=== PATIENT | male | born 1935 | race Caucasian/White ===

== ENCOUNTER 2016-07-21 07:42 | Outpatient (CLI) | payer OTHER ==
--- NOTE | 2016-07-21 10:18 | DIAGNOSTIC IMAGING REPORT ---
PROCEDURE: CT IVP CLINICAL INDICATION: Painless microscopic hematuria. Initial encounter. TECHNIQUE: Preliminary AP and lateral components engineer views of the abdomen were obtained. Subsequently, noncontrast axial images were obtained of the entire abdomen and pelvis. 125 ml of Isovue 300 was injected intravenously, and axial images were obtained of the abdomen and pelvis with biphasic imaging of the liver and kidneys, followed by sagittal and coronal reformations. Postinjection AP components engineer view of the abdomen was also obtained. COMPARISON: None. FINDINGS: NONCONTRAST ABDOMEN: No renal or ureteral calculi. 6 mm right renal lower pole cortical calcification, likely a scar. No hydronephrosis. CONTRAST ABDOMEN: Normal enhancement and excretion of the kidneys. Normal ureters. Right basilar dependent atelectasis. Normal heart size. Liver, gallbladder, pancreas, spleen and adrenal glands are normal. Mild atherosclerosis of the aorta. Small hiatal hernia. Nonspecific bowel gas pattern. NONCONTRAST PELVIS: No bladder calculi. CONTRAST PELVIS: Normal appendix. Prostatectomy and pelvic node dissection. Mild circumferential bladder wall thickening. Severe degenerative changes of the spine. IMPRESSION: 1. No urinary calculi 2. Mild circumferential urinary bladder wall thickening which may be due to lack of distention versus cystitis 3. Prostatectomy and pelvic node dissection. All CT scans at this facility use dose modulation, iterative reconstruction, and/or weight-based dosing when appropriate to reduce radiation dose to as low as reasonably achievable.
--- NOTE | 2016-07-21 10:18 | DIAGNOSTIC IMAGING REPORT ---
PROCEDURE: CT IVP CLINICAL INDICATION: Painless microscopic hematuria. Initial encounter. TECHNIQUE: Preliminary AP and lateral specimen processor views of the abdomen were obtained. Subsequently, noncontrast axial images were obtained of the entire abdomen and pelvis. 125 ml of Isovue 300 was injected intravenously, and axial images were obtained of the abdomen and pelvis with biphasic imaging of the liver and kidneys, followed by sagittal and coronal reformations. Postinjection AP specimen processor view of the abdomen was also obtained. COMPARISON: None. FINDINGS: NONCONTRAST ABDOMEN: No renal or ureteral calculi. 6 mm right renal lower pole cortical calcification, likely a scar. No hydronephrosis. CONTRAST ABDOMEN: Normal enhancement and excretion of the kidneys. Normal ureters. Right basilar dependent atelectasis. Normal heart size. Liver, gallbladder, pancreas, spleen and adrenal glands are normal. Mild atherosclerosis of the aorta. Small hiatal hernia. Nonspecific bowel gas pattern. NONCONTRAST PELVIS: No bladder calculi. CONTRAST PELVIS: Normal appendix. Prostatectomy and pelvic node dissection. Mild circumferential bladder wall thickening. Severe degenerative changes of the spine. IMPRESSION: 1. No urinary calculi 2. Mild circumferential urinary bladder wall thickening which may be due to lack of distention versus cystitis 3. Prostatectomy and pelvic node dissection. All CT scans at this facility use dose modulation, iterative reconstruction, and/or weight-based dosing when appropriate to reduce radiation dose to as low as reasonably achievable.
== END 2016-07-21 23:00 | disposition home or self-care (01) ==
LOC: CT SRH 07:42
DX: R31.9 Hematuria, unspecified (principal); Z90.79 Acquired absence of other genital organ(s); Z98.890 Other specified postprocedural states